=== PATIENT | female | born 2000 | race Two or more races ===

== ENCOUNTER 2023-04-09 21:10 | Observation (INO) | payer OTHER ==
[~2023-04-09] VITALS: Ht 150 cm; Wt 68.0 kg
[2023-04-09] MEDS ORDERED: FERR325E14 PO (21:44)
[2023-04-09] MEDS ORDERED: PRETAB PO (21:44)
[2023-04-09] MEDS ORDERED: CALC-105 PO (21:44)
[2023-04-09 21:45] VITALS: BP 121/75
== END 2023-04-09 22:10 | disposition home or self-care (01) ==
LOC: MLD 21:10
PROVIDERS: ADMIT Obstetrics & Gynecology; ATTEND Obstetrics & Gynecology
DX: O62.9 Abnormality of forces of labor, unspecified (principal); Z3A.38 38 weeks gestation of pregnancy
CPT/HCPCS: 59025; 81000; G0378

== ENCOUNTER 2023-04-14 19:52 | Inpatient (IN) | payer OTHER ==
[~2023-04-14] VITALS: Ht 149.9 cm; Wt 72.6 kg
[~2023-04-14 19:52] MED LIST: CALC-105 PO; FERR325E14 PO; PRETAB PO
[2023-04-14 22:51] LABS: BASOPHILS % (AUTO) 0.4 % (0.0-2.0); EOSINOPHILS # (AUTO) 0.1 K/uL (0-0.4); EOSINOPHILS % (AUTO) 1.4 % (0.0-4.0); HEMATOCRIT 34.9 % (36-48); HEMOGLOBIN 12.2 g/dL (12.0-16.0); LYMPHOCYTES # (AUTO) 1.9 K/uL (2.5-16.5); LYMPHOCYTES % (AUTO) 26.5 % (20.5-51.1); MEAN CORPUSCULAR HEMOGLOBIN 32 pg (27-31); MEAN CORPUSCULAR HGB CONC 35 g/dL (33-37); MEAN CORPUSCULAR VOLUME 90.9 fL (80-94); MONOCYTES # (AUTO) 0.7 K/uL (0.8-1.0); MONOCYTES % (AUTO) 10.2 % (1.7-9.3); NEUTROPHILS # (AUTO) 4.5 K/uL (1.8-7.7); NEUTROPHILS % (AUTO) 61.5 % (42.2-75.2); PLATELET COUNT (AUTO) 209 K/uL (140-450); RED BLOOD CELL COUNT(AUTO) 3.84 MIL/uL (4.20-5.40); RED CELL DISTRIBUTION WIDTH 13.5 % (11.6-13.7); WHITE BLOOD COUNT (AUTO) 7.3 K/uL (4.8-10.8)
[2023-04-14] MEDS: LACTATED RINGERS 1,000 ML IV SCH (23:57)
[2023-04-15] MEDS: LACTATED RINGERS 1,000 ML IV SCH ×3 (06:41→17:41)
[2023-04-15 07:34] VITALS: BP 115/68; PULSE 78; RESP 18; TEMP 98.1
--- NOTE | 2023-04-15 08:46 | NUR ---
PATIENT HAS BEEN SCREENED AND CATEGORIZED LOW NUTRITION RISK. PATIENT WILL BE SEEN WITHIN 7 DAYS OF ADMISSION. 04/21/[address]
[2023-04-15] MEDS ORDERED: LACTATED RINGERS 1,000 ML IV SCH (10:50)
[2023-04-15] MEDS ORDERED: CITRIC ACID/SODIUM CITRATE 30 ML UDC PO SCH (10:50)
[2023-04-15 12:00] LABS: PROTHROMBIN TIME 9.3 secs (10.8-13.4)
[2023-04-15] MEDS ORDERED: ceFAZolin Sod. 2,000 MG in DEXTROSE 5% 100 ML IV ONE (17:00)
[2023-04-15] MEDS ORDERED: ceFAZolin 2,000 MG VIAL ONE (17:18)
[2023-04-15] MEDS ORDERED: MORPHINE PRES FREE 5 MG/10 ML AMP IV ONE (17:36)
[2023-04-15] MEDS ORDERED: fentaNYL citrate 0.05 MG/ML VIAL ONE (17:36)
[2023-04-15] MEDS ORDERED: METHYLERGONOVINE 0.2 MG/ML AMP ONE (17:37)
[2023-04-15] MEDS ORDERED: METOCLOPRAMIDE 10 MG/2 ML INJ VIAL IVP ONE (17:45)
[2023-04-15] MEDS ORDERED: ePHEDrine 50 MG/ML VIAL IV ONE (17:45)
[2023-04-15] MEDS ORDERED: ONDANSETRON 4 MG/2 ML VIAL IVP ONE (17:45)
--- NOTE | 2023-04-15 18:10 | NUR ---
CALLED TO L&D FOR C SECTION. ALL EQUIPMENT CHECKED AND FUNCTIONING. AT APPROXIMATELY 1817 BABY WAS BORN, CRYING, GOOD MUSCLE TONE, AND GOOD COLOR. BABY WAS PLACED UNDER WARMER, DRY AND STIMULATE. SUCTION MOUTH WITH SCANT WHITE THICK SECRETIONS. BABY WAS LEFT IN THE CARE OF RN
[2023-04-15] MEDS ORDERED: diphenhydrAMINE 50 MG/ML VIAL ONE (18:20)
[2023-04-15 18:43] LABS: APPEARANCE,URINE CLEAR (CLEAR); BILIRUBIN,URINE NEGATIVE (NEGATIVE); BLOOD, URINE NEGATIVE (NEGATIVE); COLOR,URINE YELLOW (YELLOW); LEUKOCYTE ESTERASE ,URINE NEGATIVE (NEGATIVE); NITRITE, URINE NEGATIVE (NEGATIVE); PH,URINE 7.5 (5.0-9.0); UGLUCOSE NEGATIVE (NEGATIVE)
[2023-04-15] MEDS ORDERED: ONDANSETRON 4 MG/2 ML VIAL IVP PRN (18:45)
[2023-04-15] MEDS ORDERED: diphenhydrAMINE 50 MG/ML VIAL IVP PRN ×2 (18:45)
[2023-04-15] MEDS ORDERED: KETOROLAC 60 MG/2 ML VIAL IM PRN (18:45)
[2023-04-15 18:53] LABS: ALBUMIN 2.5 g/dL (3.4-5.0); ANION GAP 12.6 (8-16); CARBON DIOXIDE 25.2 mmol/L (21-32); CREATININE 0.4 mg/dL (0.6-1.3); POTASSIUM 3.8 mmol/L (3.5-5.1); TOTAL BILIRUBIN 0.5 mg/dL (0.0-1.0)
[2023-04-15] MEDS: OXYTOCIN 20 UNITS/LR PREMIX 1,000 ML IV ONE ×2 (19:11→19:25)
[2023-04-15] MEDS ORDERED: bisacodyL 5 MG TABEC PO PRN (20:35)
[2023-04-15] MEDS ORDERED: MEASLES, MUMPS, AND RUBELLA 1 VIAL SQVAC ONE (20:35)
[2023-04-15] MEDS ORDERED: METHYLERGONOVINE 0.2 MG/ML AMP IM PRN (20:35)
[2023-04-16] MEDS: OXYTOCIN 20 UNITS in LACTATED RINGERS 1,000 ML IV SCH ×2 (00:04→08:26)
[2023-04-16 05:33] LABS: BASOPHILS % (AUTO) 0.1 % (0.0-2.0); EOSINOPHILS % (AUTO) 0.4 % (0.0-4.0); HEMATOCRIT 35.9 % (36-48); HEMOGLOBIN 12.5 g/dL (12.0-16.0); LYMPHOCYTES # (AUTO) 1.5 K/uL (2.5-16.5); LYMPHOCYTES % (AUTO) 15.7 % (20.5-51.1); MEAN CORPUSCULAR HEMOGLOBIN 32 pg (27-31); MEAN CORPUSCULAR HGB CONC 35 g/dL (33-37); MEAN CORPUSCULAR VOLUME 91.5 fL (80-94); MONOCYTES % (AUTO) 10.2 % (1.7-9.3); NEUTROPHILS # (AUTO) 7.1 K/uL (1.8-7.7); NEUTROPHILS % (AUTO) 73.6 % (42.2-75.2); PLATELET COUNT (AUTO) 189 K/uL (140-450); RED BLOOD CELL COUNT(AUTO) 3.92 MIL/uL (4.20-5.40); WHITE BLOOD COUNT (AUTO) 9.7 K/uL (4.8-10.8)
[2023-04-16] MEDS ORDERED: OXYTOCIN 20 UNITS/LR PREMIX 1,000 ML IV ONE (06:40)
[2023-04-16] MEDS: SIMETHICONE 80 MG TAB.CHEW PO PRN ×3 (08:27→15:18)
[2023-04-16] MEDS ORDERED: MEASLES, MUMPS, AND RUBELLA 1 VIAL SQVAC SCH (09:05)
[2023-04-16] MEDS: oxyCODONE/APAP 5/325 MG 1 TAB TAB PO PRN (15:21)
[2023-04-17] MEDS ORDERED: CAMERA MC ONE (03:01)
[2023-04-17] MEDS: oxyCODONE/APAP 5/325 MG 1 TAB TAB PO PRN (03:13)
[2023-04-17] MEDS ORDERED: bisacodyL 10 MG SUPP RC SCH (09:35)
== END 2023-04-17 15:48 | disposition home or self-care (01) | DRG 540 ==
LOC: MLD 19:52 → OBSVTOIN 04-15 10:31 → MFCC 04-15 19:40
PROVIDERS: ADMIT Obstetrics & Gynecology; ATTEND Obstetrics & Gynecology
PROC: 10D00Z1 Extraction of Products of Conception, Low, Open Approach (ICD-10-PCS; principal; 2023-04-15 17:30)
DX: O34.211 Maternal care for low transverse scar from previous cesarean delivery (principal); Z20.822 Contact with and (suspected) exposure to COVID-19; Z37.0 Single live birth; Z3A.39 39 weeks gestation of pregnancy
CPT/HCPCS: G0378 ×5; 36415; 80053; 81003; 85025; 85610; 85730; 86592; 86886; 86900; 86901; 90707; 90715; J1200; J2210; J2405; J2590; J2765; J3010; J7120

== ENCOUNTER 2024-06-17 18:54 | Emergency (ER) | payer OTHER ==
[~2024-06-17] VITALS: Ht 154.9 cm; Wt 72.6 kg
[2024-06-17 19:01] VITALS: BP 110/68; PULSE 68; RESP 22; TEMP 97.9; O2SAT 99
[2024-06-17 19:30] LABS: APPEARANCE,URINE CLEAR (CLEAR); BILIRUBIN,URINE NEGATIVE (NEGATIVE); BLOOD, URINE NEGATIVE (NEGATIVE); COLOR,URINE YELLOW (YELLOW); LEUKOCYTE ESTERASE ,URINE NEGATIVE (NEGATIVE); NITRITE, URINE NEGATIVE (NEGATIVE); PH,URINE 7.5 (5.0-9.0); PROTEIN,URINE NEGATIVE (NEGATIVE); UGLUCOSE NEGATIVE (NEGATIVE); UROBILINOGEN,URINE 0.2 EU/dL (0.2 - 1)
[2024-06-17] MEDS ORDERED: METR-435 PO (20:08)
[2024-06-17] MEDS ORDERED: IBUP-1842 PO (20:35)
[2024-06-17 20:36] VITALS: BP 113/63; PULSE 72; RESP 18; TEMP 97.9; O2SAT 99
== END 2024-06-17 20:36 | disposition home or self-care (01) ==
LOC: MED 18:54
DX: N76.0 Acute vaginitis (principal); B96.89 Other specified bacterial agents as the cause of diseases classified elsewhere; Z79.899 Other long term (current) drug therapy
CPT/HCPCS: 81003; 81025; 87210; 87491; 99283